=== PATIENT | male | born 1950 | race Caucasian/White ===

== ENCOUNTER 2019-01-24 19:54 | Inpatient (IN) | payer OTHER ==
[~2019-01-24] VITALS: Ht 182.9 cm; Wt 165.7 kg
[~2019-01-24 19:54] MED LIST: ACETAMINOPHEN A1 TAB PO; ALKA-SELTZER D1 EACH; ALLOPURINOL100 MG; APAP/HYDROCODON1 T13 PO; APAP500 MG PO; ASPIRIN ADULT L81 M5 PO; ATI1 PO; ATORVASTATIN CA40 M1; ATORVASTATIN CA40 M1 PO; BEN25 PO; BG FS; BUM1 PO; BUMETANIDE2 MG; COL100 PO; COZ25 PO; DIPHENHYDRAMINE50 MG PO; DOXERCALCIFER0.5 MCG PO; FLO4 PO; FOL1 PO; HUMULIN R100 U/1 M1 SC; IMD60 PO; LEXAPRO10 MG PO; LORAZEPAM1 MG PO; LOSARTAN POTASS25 M1 PO; METOLAZONE2.5 M1 PO; METOPROLOL TART50 MG PO; NATURE'S BLEND F1 MG PO; NITROSTAT0.4 MG; ONDANSETRON4 M3 PO; PEPTO BISM262 MG/11; PLA75 PO; PROTONIX40 MG PO; PROTONIX40 MG/Pac1 PO; RENA-VITE RX1 TAB; ROB750 PO; THERA-M CAPLET1 EACH PO; TOP50 PO; TYL325 PO; VITAMIN D50000 I4 PO; VITC PO; ZYL100 PO; [UNRECOGNIZED DRUG - OTHER]
[2019-01-24 20:57] LABS: BASOPHIL % 0.8 % (0-2); PLATELET COUNT 307 x10^3mcL (130-400)
[2019-01-24 20:58] LABS: RED CELL DISTRIBUTION WIDTH 21.9 % (11.5-14.5)
[2019-01-24 20:59] LABS: CALCIUM 10.4 mg/dL (8.5-10.1); CARBON DIOXIDE 24.5 mmol/L (21-32); CREATININE SERUM 1.3 mg/dL (0.7-1.3); POTASSIUM SERUM 4.9 mmol/L (3.5-5.1)
[2019-01-24 21:04] LABS: BILIRUBIN TOTAL 0.93 mg/dL (0.20-1.00); TOTAL PROTEIN, SERUM 7.6 g/dL (6.4-8.2)
[2019-01-24 23:14] LABS: PHOSPHOROUS 4.1 mg/dL (2.5-4.9)
[2019-01-24] MEDS ORDERED: ASPIRIN ADULT L81 M5 PO (23:19)
[2019-01-24] MEDS ORDERED: ISOSORBIDE MONO60 MG PO (23:19)
[2019-01-24] MEDS ORDERED: NATURE'S BLEND F1 MG PO (23:19)
[2019-01-24] MEDS ORDERED: PANTOPRAZOLE SO40 M1 PO (23:19)
[2019-01-24] MEDS ORDERED: METOPROLOL SUCC50 M2 PO (23:19)
[2019-01-24] MEDS ORDERED: CALCIUM CARBON500 MG PO (23:20)
[2019-01-24] MEDS ORDERED: RANEXA500 M2 PO (23:20)
[2019-01-24] MEDS ORDERED: TERAZOSIN HCL2 MG PO (23:21)
[2019-01-24] MEDS ORDERED: LIPI20 PO (23:21)
[2019-01-24] MEDS ORDERED: SENNA8.6 M2 PO (23:21)
[2019-01-24] MEDS ORDERED: BUM1 PO (23:22)
[2019-01-24] MEDS ORDERED: ALLOPURINOL100 MG PO (23:22)
[2019-01-24 23:23] LABS: CHOLESTEROL/HDL RATIO 4.4
[2019-01-24 23:25] LABS: FREE T4 1.21 ng/dL (0.76-1.46); FREE THYROXINE INDEX 2.3 ug/dL (1.4-4.5); T4(THYROXINE) 6.2 ug/dL (4.7-13.3)
[2019-01-25] VITALS (11 sets, daily range): BP systolic 97–154; BP diastolic 33–74
[2019-01-25 00:23] LABS: T3 TOTAL 0.83 ng/mL
[2019-01-25] MEDS ORDERED: LEVEMIR100 U/M1 SQ (01:39)
[2019-01-25] MEDS ORDERED: ATIVAN2 MG PO (01:41)
[2019-01-25 06:56] LABS: PLATELET COUNT 239 x10^3mcL (130-400)
[2019-01-25 07:32] LABS: RED CELL DISTRIBUTION WIDTH 21.4 % (11.5-14.5)
[2019-01-25 07:33] LABS: BASOPHIL % 0 % (0-2)
[2019-01-25 07:58] LABS: CALCIUM 10.3 mg/dL (8.5-10.1); CARBON DIOXIDE 24.2 mmol/L (21-32); CREATININE SERUM 1.5 mg/dL (0.7-1.3)
[2019-01-25 08:20] LABS: POTASSIUM SERUM 5.6 mmol/L (3.5-5.1)
[2019-01-25 09:51] LABS: ovalocyte/elliptocyte 1+; tear drop cell (dacryocyte) 1+
[2019-01-25 09:52] LABS: rbc morphology (normal/abnorm) ABNORMAL (NORMAL); schistocyte (helmet cell) 1+
[2019-01-26] VITALS (18 sets, daily range): BP systolic 90–135; BP diastolic 39–72
[2019-01-26 05:24] LABS: PLATELET COUNT 198 x10^3mcL (130-400)
[2019-01-26 05:28] LABS: BASOPHIL % 0 % (0-2); RED CELL DISTRIBUTION WIDTH 21.2 % (11.5-14.5)
[2019-01-26 05:35] LABS: acanthocyte (spur cell) 1+; ovalocyte/elliptocyte 1+; rbc morphology (normal/abnorm) ABNORMAL (NORMAL); tear drop cell (dacryocyte) 1+
[2019-01-26 05:39] LABS: CALCIUM 8.8 mg/dL (8.5-10.1); CARBON DIOXIDE 26.7 mmol/L (21-32); CREATININE SERUM 1.3 mg/dL (0.7-1.3); MAGNESIUM 1.9 mg/dL (1.8-2.4); PHOSPHOROUS 3.6 mg/dL (2.5-4.9)
[2019-01-27] VITALS (18 sets, daily range): BP systolic 100–127; BP diastolic 37–85
[2019-01-27 05:28] LABS: PLATELET COUNT 188 x10^3mcL (130-400)
[2019-01-27 05:40] LABS: BASOPHIL % 0 % (0-2); RED CELL DISTRIBUTION WIDTH 21.1 % (11.5-14.5)
[2019-01-27 05:45] LABS: CALCIUM 8.9 mg/dL (8.5-10.1); CARBON DIOXIDE 30.1 mmol/L (21-32); CREATININE SERUM 1.4 mg/dL (0.7-1.3); PHOSPHOROUS 3.6 mg/dL (2.5-4.9)
[2019-01-27 05:51] LABS: rbc morphology (normal/abnorm) ABNORMAL (NORMAL)
[2019-01-27 05:52] LABS: acanthocyte (spur cell) 1+; ovalocyte/elliptocyte 1+; tear drop cell (dacryocyte) 1+
[2019-01-27 05:56] LABS: POTASSIUM SERUM 3.8 mmol/L (3.5-5.1)
[2019-01-27 07:17] LABS: microscopic required? NO
[2019-01-27 11:41] LABS: urine erythrocyte NEGATIVE (NEGATIVE)
[2019-01-28] VITALS (18 sets, daily range): BP systolic 99–147; BP diastolic 32–71; Ht 182.9 cm; Wt 165.7 kg
[2019-01-28 05:16] LABS: PLATELET COUNT 191 x10^3mcL (130-400)
[2019-01-28 05:22] LABS: BASOPHIL % 2.8 % (0-2)
[2019-01-28 05:23] LABS: RED CELL DISTRIBUTION WIDTH 21.5 % (11.5-14.5)
[2019-01-28 05:24] LABS: acanthocyte (spur cell) 1+; ovalocyte/elliptocyte 1+; rbc morphology (normal/abnorm) ABNORMAL (NORMAL); tear drop cell (dacryocyte) 1+
[2019-01-28 05:49] LABS: CALCIUM 9.2 mg/dL (8.5-10.1); CARBON DIOXIDE 27.1 mmol/L (21-32); CREATININE SERUM 1.6 mg/dL (0.7-1.3); MAGNESIUM 2.1 mg/dL (1.8-2.4); PHOSPHOROUS 3.7 mg/dL (2.5-4.9); POTASSIUM SERUM 4.2 mmol/L (3.5-5.1)
[2019-01-29] VITALS (9 sets, daily range): BP systolic 90–142; BP diastolic 37–74
[2019-01-29 05:19] LABS: BASOPHIL % 0 % (0-2); PLATELET COUNT 164 x10^3mcL (130-400)
[2019-01-29 05:20] LABS: RED CELL DISTRIBUTION WIDTH 21.6 % (11.5-14.5); rbc morphology (normal/abnorm) ABNORMAL (NORMAL)
[2019-01-29 05:21] LABS: acanthocyte (spur cell) 1+; ovalocyte/elliptocyte 1+; tear drop cell (dacryocyte) 1+
[2019-01-29 05:37] LABS: CALCIUM 8.9 mg/dL (8.5-10.1); CARBON DIOXIDE 28.9 mmol/L (21-32); CREATININE SERUM 1.6 mg/dL (0.7-1.3); MAGNESIUM 2.1 mg/dL (1.8-2.4); POTASSIUM SERUM 3.9 mmol/L (3.5-5.1)
== END 2019-01-29 19:30 | disposition expired | DRG 207 ==
LOC: ED 19:54 → DU 22:40 → IC 22:40 → DU 01-25 00:18 → IC 01-25 08:25 → DU 01-25 12:30 → IC 01-25 12:32
PROVIDERS: Emergency Medicine; Internal Medicine; ADMIT Internal Medicine
PROC: 05HM33Z Insertion of Infusion Device into Right Internal Jugular Vein, Percutaneous Approach (ICD-10-PCS; 2019-01-25)
PROC: B543ZZA Ultrasonography of Right Jugular Veins, Guidance (ICD-10-PCS; 2019-01-25)
PROC: 0BH17EZ Insertion of Endotracheal Airway into Trachea, Via Natural or Artificial Opening (ICD-10-PCS; 2019-01-28)
PROC: 0BJ08ZZ Inspection of Tracheobronchial Tree, Via Natural or Artificial Opening Endoscopic (ICD-10-PCS; 2019-01-28)
PROC: 5A1955Z Respiratory Ventilation, Greater than 96 Consecutive Hours (ICD-10-PCS; principal; 2019-01-28 11:00)
DX: J96.22 Acute and chronic respiratory failure with hypercapnia (principal); I50.43 Acute on chronic combined systolic (congestive) and diastolic (congestive) heart failure; N17.0 Acute kidney failure with tubular necrosis; I13.0 Hypertensive heart and chronic kidney disease with heart failure and stage 1 through stage 4 chronic kidney disease, or unspecified chronic kidney disease; J44.1 Chronic obstructive pulmonary disease with (acute) exacerbation; Z68.42 Body mass index [BMI] 45.0-49.9, adult; L97.421 Non-pressure chronic ulcer of left heel and midfoot limited to breakdown of skin; L97.411 Non-pressure chronic ulcer of right heel and midfoot limited to breakdown of skin; E66.2 Morbid (severe) obesity with alveolar hypoventilation; E11.22 Type 2 diabetes mellitus with diabetic chronic kidney disease; E11.65 Type 2 diabetes mellitus with hyperglycemia; N18.9 Chronic kidney disease, unspecified; E11.319 Type 2 diabetes mellitus with unspecified diabetic retinopathy without macular edema; E11.21 Type 2 diabetes mellitus with diabetic nephropathy; E11.621 Type 2 diabetes mellitus with foot ulcer; I87.2 Venous insufficiency (chronic) (peripheral); H54.8 Legal blindness, as defined in USA; Z74.01 Bed confinement status; Z66 Do not resuscitate; Z99.3 Dependence on wheelchair; Z79.82 Long term (current) use of aspirin; Z79.4 Long term (current) use of insulin; Z99.81 Dependence on supplemental oxygen; Z95.1 Presence of aortocoronary bypass graft; Z95.5 Presence of coronary angioplasty implant and graft; Z86.73 Personal history of transient ischemic attack (TIA), and cerebral infarction without residual deficits
CPT/HCPCS: 31500; 31645; 36600; 82962; 83880; 84439; A4628; C1758; G0378; J0330; J1642; J1644; J1815; J1885; J1940; J1956; J2250; J2270; J2704; J2920; J2930; J3010; J3370; J3490; J7030; J7050; J7613; J7620; J7644; Q0092